=== PATIENT | male | born 1965 | race Caucasian/White ===

== ENCOUNTER → 2017-05-07 | Day surgery (SDC) | payer BC ==
[~2017-05-07] VITALS: Ht 167.6 cm; Wt 84.1 kg
[~2017-05-07] MED LIST: CALC-393 PO; CHOL100010 PO; CYAN100020 PO; FLAX10007 PO; GARLTAB3 PO; LACT10CA3 PO; LIDOCAINE HCL 2% 2 ML VIAL (20MG/ML) ONE; PROPOFOL IV EMULSION 10 MG/ML 20 ML VIAL IV ONE; SODIUM CHLORIDE 0.9% 500ML 500 ML IV ONE
[2017-05-07 13:42] VITALS: Ht 167.6 cm; Wt 84.1 kg
--- NOTE | 2017-05-07 14:14 | Endo History and Physical ---
History & Physical Date of Service: May 07, 2017. Chief Complaint: HX TUBULAR ADENOMA 3 YRS AGO Referring Physician: DR. JACOBO COVINGTON History of Present Illness 51 yo CM who presents for colonoscopy secondary to history of colon polyps. Past Surgical History Hx Cardiac Surgery: No Hx Internal Defibrillator: No Hx Pacemaker: No Hx Abdominal Surgery: No Hx of Implantable Prosthesis: No Hx Post-Op Nausea and Vomiting: No Hx Cancer Surgery: No Hx Thoracic Surgery: No Hx Orthopedic: No Hx Urinary Tract Surgery: No Family History None Social History Smoking Status: Never Smoker Hx Substance Use: No Hx Alcohol Use: Yes (OCCASIONALLY) Allergies Coded Allergies: No Known Allergies (Verified , 05/07/17) Current Medications Reported Home Medications Medications Dose Route/Sig Max Daily Dose Days Date Category Culturelle (Lactobacillus-Inulin) 1 Cap Cap 1 Cap PO QAM 04/23/17 Reported Flax Seed Oil (Flaxseed (Linseed)) 1,000 Mg Cap 1 Cap PO QAM 04/23/17 Reported Vitamin B12 (Cyanocobalamin) 1,000 Mcg Tab 1 Tab PO QAM 04/23/17 Reported Vitamin D (Cholecalciferol) 1,000 Unit Tab 1 Tab PO QAM 04/23/17 Reported Calcium (Calcium Carbonate) 600 Mg Tab 1 Tab PO QAM 04/23/17 Reported [Garlic] 1 Tab PO QAM 04/23/17 Reported Vital Signs Weight (Kilograms): 84.09 Height (Feet): 5 Height (Inches): 6 Date Time Temp Pulse Resp B/P (MAP) Pulse Ox O2 Delivery O2 Flow Rate FiO2 05/07/17 13:52 37.2 69 18 114/74 (87) 97 Room Air Physical Exam General Appearance: WD/WN, no apparent distress Respiratory/Chest: Auscultation: breath sounds normal Cardiovascular: Heart Auscultation: RRR Abdomen: Bowel Sounds: normal Inspection & Palpation: soft, non-distended, no tenderness, guarding & rebound Assessment and Plan Assessment: 51 yo CM who presents for colonoscopy secondary to history of colon polyps. Plan: Proceed with colonoscopy.
--- NOTE | 2017-05-07 14:38 | GI REPORT ---
Procedure Date: 05/07/2017 2:14 PM Procedure: Colonoscopy Indications: High risk colon cancer surveillance: Personal history of colonic polyps Medicines: Monitored Anesthesia Care Complications: No immediate complications. Estimated Blood Loss: Estimated blood loss: none. Procedure: Pre-Anesthesia Assessment: - Prior to the procedure, a History and Physical was performed, and patient medications and allergies were reviewed. The patient's tolerance of previous anesthesia was also reviewed. The risks and benefits of the procedure and the sedation options and risks were discussed with the patient. All questions were answered, and informed consent was obtained. Prior Anticoagulants: The patient has taken no previous anticoagulant or antiplatelet agents. ASA Grade Assessment: II - A patient with mild systemic disease. After reviewing the risks and benefits, the patient was deemed in satisfactory condition to undergo the procedure. After I obtained informed consent, the scope was passed under direct vision. Throughout the procedure, the patient's blood pressure, pulse, and oxygen saturations were monitored continuously. The scope was introduced through the anus and advanced to the terminal ileum. The colonoscopy was performed without difficulty. The patient tolerated the procedure well. The quality of the bowel preparation was good. The terminal ileum, ileocecal valve, appendiceal orifice, and rectum were photographed. Findings: Non-bleeding internal hemorrhoids were found during retroflexion. The hemorrhoids were small. Impression: - Non-bleeding internal hemorrhoids. - No specimens collected. Recommendation: - Resume previous diet. - Continue present medications. - Repeat colonoscopy in 5 years for surveillance. - Return to primary care physician as previously scheduled. Mal Clement DO 05/07/2017 2:37:54 PM This report has been signed electronically. Note Initiated On: 05/07/2017 2:14 PM I attest to the content of the Intraoperative Record and orders documented therein, exceptions below
--- NOTE | 2017-05-07 14:40 | Discharge Instructions ---
Endoscopy Patient Instructions Date / Procedure(s) Performed May 07, 2017. Colonoscopy Allergy Information Coded Allergies: No Known Allergies (Verified , 05/07/17) Discharge Date / Findings May 07, 2017. Internal hemorrhoids Medication Instructions Stopped Medication(s): NOTHING TAKEN THIS AM OK to resume all medications today as prescribed Reported Home Medications Medications Dose Route/Sig Max Daily Dose Days Date Category Culturelle (Lactobacillus-Inulin) 1 Cap Cap 1 Cap PO QAM 04/23/17 Reported Flax Seed Oil (Flaxseed (Linseed)) 1,000 Mg Cap 1 Cap PO QAM 04/23/17 Reported Vitamin B12 (Cyanocobalamin) 1,000 Mcg Tab 1 Tab PO QAM 04/23/17 Reported Vitamin D (Cholecalciferol) 1,000 Unit Tab 1 Tab PO QAM 04/23/17 Reported Calcium (Calcium Carbonate) 600 Mg Tab 1 Tab PO QAM 04/23/17 Reported [Garlic] 1 Tab PO QAM 04/23/17 Reported Provider Instructions Activity Restrictions - No exercising or heavy lifting for 24 hours. - Do not drink alcohol the day of the procedure. - Do not drive a car or operate machinery until the day after the procedure. - Do not make any important decisions or sign important papers in 24 hours after the procedure. Following Day: - Return to full activity which may include returning to work/school. Diet Start your diet with liquids and light foods (jello, soup, juice, toast). Then eat your usual diet if not nauseated. Treatment For Common After Affects For mild abdominal pain, bloating, or excessive gas: - Rest - Eat lightly - Lie on right side Follow-Up Information Follow-up with DR. JACOBO COVINGTON as scheduled Anesthesia Information What You Should Know You have had a procedure that required some medicine to reduce anxiety and discomfort. This treatment is called moderate sedation. After receiving the treatment, you may be sleepy, but you will be able to breathe on your own. The effects of the treatment may last for several hours. Follow these instructions along with Activity/Diet recommendations noted above: * Do NOT do anything where dizziness or clumsiness would be dangerous. * Rest quietly at home today, then you can be up and about tomorrow. * Have a responsible person stay with you the rest of today. * You may have had an I.V. today. If so, you may take the dressing off later today. Recommendations Call your doctor if: * Trouble breathing * Continuous vomiting for more than 24 hours * Temperature above 101 degrees * Severe abdominal pain or bloating * Pain not relieved by pain medicine ordered * There is increased drainage or redness from any incision * A large amount of rectal bleeding greater than 2-3 tablespoons. (If you had a polyp/s removed or have hemorrhoids, a small amount of blood - from the rectum is to be expected.) * You have any unanswered questions or concerns. IN THE EVENT OF A SERIOUS EMERGENCY, GO TO THE NEAREST EMERGENCY ROOM Your discharge instructions were prepared by provider Mal Clement. Patient Instructions Signature Page Manjeet Mcdonald Patient (or Guardian) Signature/Date: I have read and understand the instructions given to me by my caregivers. Caregiver/RN/Doctor Signature/Date: The above-named patient and/or guardian has received patient instructions on this date. + Original Patient Signature Page (only) stays with chart. Please make copy for patient.
[2017-05-07 15:11] VITALS: BP 107/67; PULSE 48; O2SAT 99
--- NOTE | 2017-05-07 15:15 | Anesthesiology Progress Note ---
Anesthesia Post Op Note Date & Time May 07, 2017 at 15:15 Vital Signs Pain Intensity: 0 Vital Signs Past 12 Hours Date Time Temp Pulse Resp B/P (MAP) Pulse Ox O2 Delivery O2 Flow Rate FiO2 05/07/17 15:11 48 20 107/67 (80) 99 Room Air 05/07/17 14:55 58 20 93/57 (69) 99 Room Air 05/07/17 14:38 69 20 99/45 (63) 97 Room Air 05/07/17 13:52 37.2 69 18 114/74 (87) 97 Room Air Notes Mental Status: alert / awake / arousable, participated in evaluation Pt Amnestic to Procedure: Yes Nausea / Vomiting: adequately controlled Pain: adequately controlled Airway Patency, RR, SpO2: stable & adequate BP & HR: stable & adequate Hydration State: stable & adequate Anesthetic Complications: no major complications apparent
== END | disposition home or self-care (01) ==
LOC: C.GI 13:22
PROVIDERS: ATTEND Internal Medicine
DX: Z12.11 Encounter for screening for malignant neoplasm of colon (principal); Z86.010 Personal history of colon polyps; K64.8 Other hemorrhoids

== ENCOUNTER → 2017-12-19 | Outpatient (CLI) | payer OTHER ==
[~2017-12-19] MED LIST changes: -LIDOCAINE HCL 2% 2 ML VIAL (20MG/ML) ONE; -PROPOFOL IV EMULSION 10 MG/ML 20 ML VIAL IV ONE; -SODIUM CHLORIDE 0.9% 500ML 500 ML IV ONE
[2017-12-19 16:55] LABS: BASO % 0.4 %; BASO ABS # 0.04 K/uL (0-0.2); EOS % 6.2 %; HEMATOCRIT 43.4 % (42-52); HEMOGLOBIN 14.5 g/dL (14.0-18.0); IG# 0.02 K/uL (0.00-0.02); LYMPH % 29.9 %; LYMPH ABS # 2.89 K/uL (1.2-3.4); MEAN CELL VOLUME 85.3 fL (80-100); MEAN CORPUSCULAR HEMOGLOBIN 28.5 pg (25-34); MEAN CORPUSCULAR HGB CONC 33.4 g/dl (32-36); MEAN PLATELET VOLUME 10.6 fL (7.4-10.4); MONO % 8.6 %; MONO ABS # 0.83 K/uL (0.11-0.59); NEUT % 54.7 %; NEUT ABS # 5.29 K/uL (1.4-6.5); PLATELET COUNT 316 K/uL (130-400); RED CELL DISTRIBUTION WIDTH CV 14.4 % (11.5-14.5); RED CELL DISTRIBUTION WIDTH SD 44.4 fL (36.4-46.3); WHITE BLOOD COUNT 9.67 K/uL (4.8-10.8)
[2017-12-19 17:06] LABS: ALBUMIN 4.1 gm/dl (3.4-5.0); ALT/SGPT 34 U/L (12-78); AST/SGOT 17 U/L (15-37); BLOOD UREA NITROGEN 14 mg/dl (7-18); CALCIUM 8.7 mg/dl (8.5-10.1); CARBON DIOXIDE 27 mmol/L (21-32); CREATININE 1.28 mg/dl (0.60-1.40); GLUCOSE 95 mg/dl (70-99); POTASSIUM 4.2 mmol/L (3.5-5.1); SODIUM 138 mmol/L (136-145)
[2017-12-19 17:14] LABS: ALKALINE PHOSPHATASE 66 U/L (45-117); TOTAL PROTEIN 8.1 gm/dl (6.4-8.2); TRANSFERRIN 390 mg/dl (200-360)
[2017-12-20 01:41] LABS: RAPID PLASMA REAGIN NONREACTIVE (NONREACT)
== END | disposition home or self-care (01) ==
LOC: C.LABBC 14:28
PROVIDERS: ATTEND Nurse Practitioner Adult Health
DX: R51 Headache (principal); D50.9 Iron deficiency anemia, unspecified

== ENCOUNTER → 2017-12-20 | Outpatient (CLI) | payer OTHER ==
[~2017-12-20] MED LIST changes: +GADAVIST IV PRN
--- NOTE | 2017-12-20 12:16 | DIAGNOSTIC IMAGING REPORT ---
BRAIN COMBO CLINICAL HISTORY: SEIZURE mental status change COMPARISON STUDY: No previous studies for comparison. TECHNIQUE: Utilizing a 1.5 Zenaida magnet and dedicated coil, multiplanar, multiecho imaging of the brain was performed pre and postcontrast administration. IV administration of 9 mL of Gadavist contrast was uneventful. FINDINGS: Diffusion images are negative for an acute ischemic process. Signal characteristics of the cerebellar as well as cerebral hemispheres are unremarkable. The ventricular system is midline. Postcontrast images are negative for an enhancing lesion IMPRESSION: Normal study. The above report was generated using voice recognition software. It may contain grammatical, syntax or spelling errors. Electronically signed by: Romario High M.D. 12/20/2017 12:15 PM Dictated Date/Time: 12/20/2017 12:10 PM
--- NOTE | 2017-12-20 12:21 | DIAGNOSTIC IMAGING REPORT ---
MRA NECK COMBO HISTORY: Mental status change SEIZURE TECHNIQUE: [id number]-[id number] and gadolinium-enhanced MRA of the neck was performed both before and after the intravenous administration of contrast. All measurements were calculated based on NASCET criteria. COMPARISON STUDY: None. FINDINGS: The aortic arch and proximal great vessels are widely patent. There is no significant stenosis, occlusion, or dissection identified within the bilateral common carotid, internal carotid, or vertebral arteries. Minimal plaque formation at the carotid bifurcations IMPRESSION: No significant stenosis, occlusion, or dissection identified within the carotid or vertebral arteries. Minimal plaque formation at the carotid bifurcations The above report was generated using voice recognition software. It may contain grammatical, syntax or spelling errors. Electronically signed by: Romario High M.D. 12/20/2017 12:19 PM Dictated Date/Time: 12/20/2017 12:17 PM
== END | disposition home or self-care (01) ==
LOC: C.MRIBC 09:42
PROVIDERS: ATTEND Nurse Practitioner Adult Health
DX: R56.9 Unspecified convulsions (principal); R47.01 Aphasia

== ENCOUNTER → 2017-12-21 | Outpatient (CLI) | payer OTHER ==
[~2017-12-21] MED LIST changes: -GADAVIST IV PRN
== END | disposition home or self-care (01) ==
LOC: C.LABBC 07:42
PROVIDERS: ATTEND Nurse Practitioner Adult Health
DX: E78.5 Hyperlipidemia, unspecified (principal)

== ENCOUNTER → 2017-12-26 | Outpatient (CLI) | payer OTHER ==
--- NOTE | 2017-12-26 16:17 | EEG Procedure Note ---
EEG Procedure Note Date of Service Dec 26, 2017. Start / End Times Start Time: 9:19 AM End Time: 9:39 AM Referring Physician ADAM Silverio History This is a 52-year-old male who is being evaluated for seizure-like activity described as having a moment of being paralyzed. EEG for further evaluation of possible seizure etiology. Home Medication List Scheduled Calcium Carbonate (Calcium), 1 TAB PO QAM Cholecalciferol (Vitamin D), 1 TAB PO QAM Cyanocobalamin (Vitamin B12), 1 TAB PO QAM Flaxseed (Linseed) (Flax Seed Oil), 1 CAP PO QAM Lactobacillus-Inulin (Culturelle), 1 CAP PO QAM [Garlic], 1 TAB PO QAM Description This is a 21 electrode EEG with a single channel dedicated to limited EKG. The electrodes were placed in accordance with the International 10-20 system. At the start of the recording the patient was in an awake state. Background was well organized and composed of symmetric mixed alpha and beta frequencies. There was a symmetric well-formed moderate amplitude 9-10 Hz posterior dominant rhythm that was reactive to eye opening and closure. Hyperventilation was not done. Intermittent photic stimulation at various frequencies produced no abnormalities. Sleep was indicated by vertex waves and symmetric sleep spindles. Interpretation This is a normal awake and drowsy routine EEG. There was no electrographic seizures or epileptiform discharges. Clinical Correlation A normal EEG does not rule out epilepsy if there is a strong clinical suspicion.
== END | disposition home or self-care (01) ==
LOC: C.NEUR 08:50
PROVIDERS: ATTEND Nurse Practitioner Adult Health
DX: R56.9 Unspecified convulsions (principal)

== ENCOUNTER 2019-10-21 17:53 | Inpatient (IN) ==
[2019-10-21 18:31] LABS: Basophils # (auto) 0.03 K/uL (0-0.2); Basophils % (auto) 0.3 %; Eosinophils # (auto) 0.72 K/uL (0-0.5); Eosinophils % (auto) 6.6 %; Hematocrit (blood only) 43.6 % (42-52); Hemoglobin 14.8 g/dL (14.0-18.0); Immature Granulocytes # (auto) 0.02 K/uL (0.00-0.02); Immature Granulocytes % (auto) 0.2 %; Lymphocytes # (auto) 2.92 K/uL (1.2-3.4); Lymphocytes % (auto) 26.6 %; Mean Corpuscular Hemoglobin 29.8 pg (25-34); Mean Corpuscular Hgb Conc 33.9 g/dL (32-36); Mean Corpuscular Volume 87.7 fL (80-100); Mean Platelet Volume 10.1 fL (7.4-10.4); Monocytes # (auto) 1.45 K/uL (0.11-0.59); Monocytes % (auto) 13.2 %; Neutrophils # (auto) 5.85 K/uL (1.4-6.5); Neutrophils % (auto) 53.1 %; Platelet Count 317 K/uL (130-400); RDW Coefficient of Variation 13.9 % (11.5-14.5); RDW Standard Deviation 44.4 fL (36.4-46.3); Red Blood Count 4.97 M/uL (4.7-6.1); White Blood Count 10.99 K/uL (4.8-10.8)
[2019-10-21] MEDS ORDERED: HEPARIN SOD (PORCINE) 1000 UNIT/ML 10 ML VIAL ONE (18:34)
[2019-10-21 18:42] LABS: Partial Thromboplastin Ratio 0.9; Partial Thromboplastin Time 23.8 Seconds (21.0-31.0); Prothrombin Time 10.4 Seconds (9.0-12.0)
[2019-10-21] MEDS: HEPARIN SODIUM/DEXTROSE 25,000 UNITS/500 ML BAG IV SCH (18:42)
--- NOTE | 2019-10-21 18:42 | XRay Report ---
SINGLE VIEW CHEST CLINICAL HISTORY: Atypical chest pain. FINDINGS: An AP, portable, upright chest radiograph is compared to study dated 06/18/2018 and correlat ed with chest CT dated 10/21/2019. The examination is degraded by portable technique and apical lordot ic positioning. The cardiomediastinal silhouette is unremarkable. There is chronic elevation of the r ight hemidiaphragm. No airspace consolidation or pleural effusion is identified. No pneumothorax is s een. The bony thorax is grossly intact. IMPRESSION: The lungs are clear. ACT 112: Negative or not required by law. Electronically signed by: Brian Mathew M.D. 10/21/2019 6:41 PM
[2019-10-21 18:58] LABS: Albumin Level 3.6 gm/dl (3.4-5.0); BUN Creatinine Ratio 10.2 (10-20); Calcium 8.4 mg/dl (8.5-10.1); Creatinine Clr Calc Pharmacy 68.7 ml/min; Est GFR (African American) 73.2; Est GFR (Non-African American) 63.2
[2019-10-21 19:03] LABS: Albumin Globulin Ratio 0.9 (0.9-2); Bilirubin,Total 0.5 mg/dl (0.2-1); Globulin 3.8 gm/dl (2.5-4.0); Total Protein 7.4 gm/dl (6.4-8.2); Troponin I 0.018 ng/ml (0-0.045)
--- NOTE | 2019-10-21 20:31 | Ultrasound Report ---
ULTRASOUND BILATERAL LOWER EXTREMITY VENOUS CLINICAL HISTORY: Syncope. Pulmonary embolus. COMPARISON STUDY: Right lower extremity venous ultrasound dated 02/23/2010. TECHNIQUE: Real-time, grayscale, and color Doppler sonography of the deep veins of the right and left lower extremity was performed from the inguinal crease to the calf. Compression and augmentation wer e utilized. FINDINGS: Right lower extremity: Nonocclusive deep venous thrombosis is identified in the calf within a posteri or tibial vein. The remaining visualized calf vessels are clear. No above knee deep venous thrombosis is seen in the right lower extremity. The common femoral, superficial femoral, and popliteal veins a re patent and normally compressible. The greater saphenous vein and the profunda femoris vein at the junction with the common femoral vein are clear. Left lower extremity: Nonocclusive deep venous thrombosis is identified in the calf within the perone al veins. The remaining calf vessels appear clear. There is no sonographic evidence of above knee iván p venous thrombosis in the left lower extremity. The common femoral, superficial femoral, and poplite al veins are patent and normally compressible. The greater saphenous vein and the profunda femoris ve in at the junction with the common femoral vein are clear. Superficial venous thrombus is present in the popliteal fossa approximately 6 cm from the popliteal vein. IMPRESSION: 1. There is nonocclusive deep venous thrombosis identified in the calf bilaterally. 2. Superficial venous thrombus is identified in the left lower extremity. ACT 112: Negative or not required by law. Electronically signed by: Brian Mathew M.D. 10/21/2019 8:29 PM
--- NOTE | 2019-10-21 21:38 | History & Physical Report ---
Date of Service October 21, 2019 Assessment & Plan (1) Pulmonary emboli: 54 yo M with PMH HTN presents from PCP office to get D Dimer testing that was found to be elevated. Follow up Chest CTA revealed pulmonary emboli and venous dopplers revealed b/l DVT's. PE/DVT -D- Dimer was 950 -Chest CTA: Tiny distal segmental/subsegmental pulmonary emboli within branches of the right and left lower lobe pulmonary arteries. -Venous Dopplers: Nonocclusive deep venous thrombosis identified in the calf bilaterally. Superficial venous thrombus is identified in the left lower extremity. -Cont IV Heparin 25,000 units. Can discuss switching to PO regimen with day team -ECHO pending -deferring hyper-coaguable workup at present, which can be done by Heme/Onc as an outpt at 3 or 6 month f/u HTN -cont propranolol 60 mg FEN/GI: HH Diet DVT Prophylaxis: IV Heparin Full Code Dispo: PCU Tele History of Present Illness Chief Complaint: Elevated D-Dimer Primary Care Provider: Bruno Pritchard MD 54 yo M with PMH HTN presents from PCP's office. Pt was seen in ER Oct 20, 2019 for syncopal episode while attempting to urinate. He suffered a concussion and closed head injury. CT scan of the head and neck were negative for acute pathology. ECG: Normal without ectopy or dysrhythmia. The labs revealed an unremarkable CBC and chemistry panel. The patient was instructed to follow-up closely with his primary office, which he did so today. At this visit, pt mentioned some right calf tenderness. Given recent travel to [facility] (traveled for 2 weeks, returned 9 days ago- Oct 11), it was decided to check a D-dimer. Pt wore compression stockings with travel. At PCP visit, pt denied any dyspnea, chest pain, edema, he was oxygenating normally, Heart rate 60. In [place], pt had an episode of sudden diaphoresis with some mild exertion, but did not need to rest. Notes that he has had similar episodes in the past. Otherwise denies CP, SOB, syncope or near syncope, edema, palpitations. Pt with no other acute concerns or complaints. D- Dimer was 950. Chest CTA: Tiny distal segmental/subsegmental pulmonary emboli within branches of the right and left lower lobe pulmonary arteries. Venous Dopplers: Nonocclusive deep venous thrombosis identified in the calf bilaterally. Superficial venous thrombus is identified in the left lower extremity. ER Course: IV Heparin Family Hx: CAD, Cardiac disorder, DM, HTN in Father. No known family hx of cancers otherwise Social: Denies any Tobacco, illicit drug use. Social Alcohol use Surgical Hx: None Allergies Allergy/AdvReac Type Severity Reaction Status Date / Time No Known Allergies Allergy Verified 10/21/19 13:33 Home Medications Home Medications Medication Instructions Recorded Confirmed Type calcium carb-mag oxide-vit D3 1 tab PO HS 10/20/19 10/21/19 History lysine [L-Lysine] 500 mg PO HS 10/21/19 10/21/19 History propranolol 60 mg PO HS 10/21/19 10/21/19 History Past Med/Surg History Medical History Other and unspecified hyperlipidemia (Acute 02/17/13) Family History Father Coronary heart disease Cardiac disorder Diabetes Hypertension Social History Preferred Language: Cambodian Communication Ability: Effective Silk Spreader Required: No Beliefs That Will Affect Care: None marital status: Current Living Situation: Spouse current occupational status: employed 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 Other Information That Helps Us Care for You: No Feels Safe at Home: Yes Safety Concerns: Feels Safe At This Time Smoking Status: Unknown if ever smoked Hx Alcohol Use: No Hx Substance Use: No Review of Systems Review of Systems: All systems reviewed & are unremarkable except as noted in HPI & below Physical Exam Constitutional: WD/WN, vitals as above Eyes: PERRL, conjunctivae normal, anicteric sclerae ENMT: external ear and nose normal, oropharynx normal Respiratory: normal respiratory effort, lungs clear to auscultation Cardiovascular: RRR, no murmur, no edema Gastrointestinal (Abdomen): normal bowel sounds, soft, nontender, no hepatosplenomegaly Musculoskeletal: mild R calf tenderness Leslie's contraindicated Skin: no rashes, warm and dry Psychiatric: A+Ox3, euthymic affect Results & Data Vital Signs (Past 12 Hours) Vital Signs Temp Pulse Resp BP Pulse Ox 10/21/19 20:31 53 L 20 96 10/21/19 20:30 55 L 20 120/76 98 10/21/19 20:29 55 L 22 96 10/21/19 19:30 52 L 21 10/21/19 19:00 52 L 17 133/80 10/21/19 18:30 58 L 18 134/82 95 10/21/19 18:21 55 L 20 97 10/21/19 18:15 54 L 21 98 10/21/19 18:09 57 L 21 140/84 98 10/21/19 18:01 36.7 C 60 16 152/95 H 98 Laboratory Results Laboratory Results - last 24 hr 10/21/19 10/21/19 10/21/19 18:18 18:18 18:18 WBC 10.99 H RBC 4.97 Hgb 14.8 Hct 43.6 MCV 87.7 MCH 29.8 MCHC 33.9 RDW Std Deviation 44.4 RDW Coeff of Teodora 13.9 Plt Count 317 MPV 10.1 Immature Gran % (Auto) 0.2 Neut % (Auto) 53.1 Lymph % (Auto) 26.6 Door % (Auto) 13.2 Eos % (Auto) 6.6 Baso % (Auto) 0.3 Immature Gran # (Auto) 0.02 Neut # (Auto) 5.85 Lymph # (Auto) 2.92 Door # (Auto) 1.45 H Eos # (Auto) 0.72 H Baso # (Auto) 0.03 PT 10.4 INR 1.0 APTT 23.8 PTT Ratio 0.9 Sodium 137 Potassium 4.0 Chloride 106 Carbon Dioxide 28 Anion Gap 3.0 BUN 13 Creatinine 1.27 Est Cr Clr Drug Dosing 68.7 Est GFR ( Amer) 73.2 Est GFR (Non-Af Amer) 63.2 BUN/Creatinine Ratio 10.2 Glucose 91 Calcium 8.4 L Total Bilirubin 0.5 AST 15 ALT 34 Alkaline Phosphatase 69 Troponin I 0.018 Total Protein 7.4 Albumin 3.6 Globulin 3.8 Albumin/Globulin Ratio 0.9 Lipase 239 Medications Administered Current Inpatient Medications Heparin Sodium/Dextrose (Heparin Sodium/Dextrose) 25,000 units in 500 mls @ 0.02 mls/hr IV .Q24H [facility]; Protocol Stop: 11/20/19 18:29 Last Admin: 10/21/19 18:42 Dose: 1,350 units/hr, 27 mls/hr Documented by: Code Status & VTE Plan Code Status FULL Supervising Physician Co-Signing Physician Notes Patient was seen and examined by me personally. I reviewed the chart, the orders and discussed the case in detail with Dr. Jose Massey DO . I read this H&P and agree with its contents to entirety. Resident Activity Tracking Resident Involvement: Resident Care Provided Care Provided: Adult Hospital Medicine
--- NOTE | 2019-10-21 23:26 | Emergency Department Note ---
Entered by Sammy Bower acting as a scribe for Nayan Layne DO History of Present Illness General Chief complaint: Abnormal Labs/Diagnostic Testing Stated complaint: OUTPATIENT TESTING - PE Source: patient History of Present Illness Provider complaint: Abnormal testing Onset (ago): hour(s) (Today) Location: chest Pain Consistency: + other (Episodic) Maximum Pain Intensity: 0 Current Pain Intensity: 0 Associated symptoms: + syncope; no chest pain and no shortness of breath The patient is a 54 year old male w/ PMHx of migraines, HTN, concussion, and syncope who presents to the ED after having abnormal blood work and imaging today. The patient states his D-dimer was elevated so he had a CT scan of the chest done that showed multiple tiny PEs. The patient had the testing done due to a syncopal episode he had yesterday while he was walking to the bathroom. The patient denies any chest pain or shortness of breath at the time of the incident. He also relates that he has not had any shortness of breath with exertion as of late. The patient mentioned that he recently had returned from [facility] 10 days ago. Patient denies swelling of calves, history of immobilization or recent surgery, prior history of DVT, hemoptysis, history of malignancy, or history of smoking. The patient also denies any hematochezia, melena, or hematuria. Home Medications Home Medications Medication Instructions Recorded Confirmed Type calcium carb-mag oxide-vit D3 1 tab PO HS 10/20/19 10/21/19 History lysine [L-Lysine] 500 mg PO HS 10/21/19 10/21/19 History propranolol 60 mg PO HS 10/21/19 10/21/19 History Allergies Allergy/AdvReac Type Severity Reaction Status Date / Time No Known Allergies Allergy Verified 10/21/19 13:33 Past Med/Surg History Medical History Other and unspecified hyperlipidemia (Acute 02/17/13) Family History Father Coronary heart disease Cardiac disorder Diabetes Hypertension Social History Preferred Language: Nepali marital status: current occupational status: employed 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 and A total of 10 systems reviewed and were otherwise negative Physical Exam Vital Signs Vital Signs - 24 hr 10/21/19 18:01 10/21/19 18:09 10/21/19 18:15 Temperature 36.7 C Temperature Source Oral Pulse Rate 60 57 L 54 L Pulse Rate from SpO2 Sensor 59 L 53 L Pulse Rhythm Respiratory Rate 16 21 21 Respiratory Effort / Characteristics Non-Labored Respiratory Depth Normal Blood Pressure 152/95 H 140/84 Blood Pressure Mean 114 101 Pulse Oximetry 98 98 98 Oxygen Delivery Method Room Air Room Air Sepsis Recent Fever Within 48 Hours No Sepsis New/Unexplained Change in Mental Status No Sepsis Action Taken by Nursing No Action Required 10/21/19 18:21 10/21/19 18:30 10/21/19 19:00 Temperature Temperature Source Pulse Rate 55 L 58 L 52 L Pulse Rate from SpO2 Sensor 56 L Pulse Rhythm Regular Respiratory Rate 20 18 17 Respiratory Effort / Characteristics Respiratory Depth Blood Pressure 134/82 133/80 Blood Pressure Mean 99 97 Pulse Oximetry 97 95 Oxygen Delivery Method Room Air Room Air Room Air Sepsis Recent Fever Within 48 Hours Sepsis New/Unexplained Change in Mental Status Sepsis Action Taken by Nursing 10/21/19 19:30 10/21/19 20:29 10/21/19 20:30 Temperature Temperature Source Pulse Rate 52 L 55 L 55 L Pulse Rate from SpO2 Sensor 54 L 55 L Pulse Rhythm Respiratory Rate 21 22 20 Respiratory Effort / Characteristics Respiratory Depth Blood Pressure 120/76 Blood Pressure Mean 84 Pulse Oximetry 96 98 Oxygen Delivery Method Sepsis Recent Fever Within 48 Hours Sepsis New/Unexplained Change in Mental Status Sepsis Action Taken by Nursing 10/21/19 20:31 10/21/19 21:00 10/21/19 21:30 Temperature Temperature Source Pulse Rate 53 L 51 L 47 L Pulse Rate from SpO2 Sensor 57 L 50 L 47 L Pulse Rhythm Respiratory Rate 20 17 22 Respiratory Effort / Characteristics Respiratory Depth Blood Pressure Blood Pressure Mean Pulse Oximetry 96 96 97 Oxygen Delivery Method Sepsis Recent Fever Within 48 Hours Sepsis New/Unexplained Change in Mental Status Sepsis Action Taken by Nursing 10/21/19 22:00 10/21/19 22:07 10/21/19 22:30 Temperature Temperature Source Pulse Rate 48 L 55 L 56 L Pulse Rate from SpO2 Sensor 49 L Pulse Rhythm Respiratory Rate 21 22 23 Respiratory Effort / Characteristics Respiratory Depth Blood Pressure 122/90 129/83 Blood Pressure Mean 103 93 Pulse Oximetry 95 Oxygen Delivery Method Sepsis Recent Fever Within 48 Hours Sepsis New/Unexplained Change in Mental Status Sepsis Action Taken by Nursing 10/21/19 22:31 10/21/19 23:00 10/21/19 23:01 Temperature Temperature Source Pulse Rate 61 58 L 58 L Pulse Rate from SpO2 Sensor Pulse Rhythm Respiratory Rate 24 19 19 Respiratory Effort / Characteristics Respiratory Depth Blood Pressure 115/77 Blood Pressure Mean 85 Pulse Oximetry Oxygen Delivery Method Sepsis Recent Fever Within 48 Hours Sepsis New/Unexplained Change in Mental Status Sepsis Action Taken by Nursing GENERAL: Sitting up in bed, alert, well appearing, well nourished, no distress, non-toxic EYE EXAM: normal conjunctiva. OROPHARYNX: no exudate, no erythema, lips, buccal mucosa, and tongue normal and mucous membranes are moist NECK: supple, no nuchal rigidity, no adenopathy, non-tender LUNGS: Clear to auscultation. Normal chest wall mechanics HEART: Bradycardic rate, no murmurs, S1 normal and S2 normal ABDOMEN: abdomen soft, non-tender, normo-active bowel, sounds, no masses, no rebound or guarding. BACK: Back is symmetrical on inspection and there is no deformity, no midline tenderness, no CVA tenderness. SKIN: no rashes and no bruising UPPER EXTREMITIES: upper extremities are grossly normal. LOWER EXTREMITIES: No pitting edema. Calves equal bilaterally. NEURO EXAM: Normal sensorium, cranial nerves II-XII grossly intact, normal speech, no gross weakness of arms, no gross weakness of legs. Course Course ED COURSE: Vital signs were reviewed and showed bradycardia. The patients medical record was reviewed The above diagnostic studies were performed and reviewed. ED treatments and interventions as stated above. 1807: The patient was evaluated in room A04B. A complete history and physical examination was performed. 1904: Upon reevaluation, the patient is resting in bed. I discussed my findings with the patient and he understands and agrees with the treatment plan. 1926: [facility] He agreed to accept the patient for further evaluation. Based on the patients age, coexisting illnesses, exam and lab findings the decision to treat as an inpatient was made. The patient remained stable while under my care. The patient will be evaluated for further management. Consultations Consultation #1: I spoke to Dr. Jose Francisco Ruiz [facility] Hospitalist about the patient's case. He agreed to accept the patient for further evaluation. Time: 19:27 Administered Medications Heparin Sodium/Dextrose (Heparin Sodium/Dextrose) 25,000 units in 500 mls @ 0. 02 mls/hr IV .Q24H CARMELITA; Protocol Stop: 11/20/19 18:29 Last Admin: 10/21/19 18:42 Dose: 1,350 units/hr, 27 mls/hr Documented by: [id number] Cosigned by: [id number] Discontinued Medications Heparin Sodium (Porcine) (Heparin Iv Bolus) Confirm Administered Dose 10,000 units .ROUTE .[facility] Stop: 10/21/19 18:35 Last Admin: 10/21/19 18:42 Dose: 5,000 units Documented by: [id number] Cosigned by: [id number] Heparin Sodium/Dextrose () 1 ea IV NOW STA; Protocol Stop: 10/21/19 18:23 Last Admin: 10/21/19 18:44 Dose: Not Given Documented by: [id number] Critical Care Time Critical Care Time: Yes Total Critical Care Time: 31 I have personally spent greater than 31 minutes of critical care time in the direct management of this patient. This includes bedside care, interpretation of diagnostic studies, and testing, discussion with consultants, patient, and family members, and other required patient management activities. This 31 minutes is in excess of all separately billable procedures. Medical Decision Making Differential Diagnosis Differential diagnosis includes etiologies such as vasovagal event, infection, hypoglycemia, electrolyte abnormalities, cardiac sources, intracerebral event, toxicologic, neurologic, as well as others were entertained. Medical Records Attestation: I reviewed the patient's medical records. Home Medications Current Medication List: was personally reviewed by mi Laboratory Data Attestation: I reviewed the patient's lab results. Result diagrams: 10/21/19 18:18 10/21/19 18:18 Lab Results 10/21/19 10/21/19 10/21/19 Range/Units 18:18 18:18 18:18 WBC 10.99 H (4.8-10.8) K/uL RBC 4.97 (4.7-6.1) M/uL Hgb 14.8 (14.0-18.0) g/dL Hct 43.6 (42-52) % MCV 87.7 (80-100) fL MCH 29.8 (25-34) pg MCHC 33.9 (32-36) g/dL RDW Std Deviation 44.4 (36.4-46.3) fL RDW Coeff of Teodora 13.9 (11.5-14.5) % Plt Count 317 (130-400) K/uL MPV 10.1 (7.4-10.4) fL Immature Gran % (Auto) 0.2 % Neut % (Auto) 53.1 % Lymph % (Auto) 26.6 % [place] % (Auto) 13.2 % Eos % (Auto) 6.6 % Baso % (Auto) 0.3 % Immature Gran # (Auto) 0.02 (0.00-0.02) K/uL Neut # (Auto) 5.85 (1.4-6.5) K/uL Lymph # (Auto) 2.92 (1.2-3.4) K/uL [place] # (Auto) 1.45 H (0.11-0.59) K/uL Eos # (Auto) 0.72 H (0-0.5) K/uL Baso # (Auto) 0.03 (0-0.2) K/uL PT 10.4 (9.0-12.0) Seconds INR 1.0 (0.9-1.1) APTT 23.8 (21.0-31.0) Seconds PTT Ratio 0.9 Sodium 137 (136-145) mmol/L Potassium 4.0 (3.5-5.1) mmol/L Chloride 106 (98-107) mmol/L Carbon Dioxide 28 (21-32) mmol/L Anion Gap 3.0 (3-11) BUN 13 (7-18) mg/dl Creatinine 1.27 (0.6-1.4) mg/dl Est Cr Clr Drug Dosing 68.7 ml/min Est GFR ( Amer) 73.2 Est GFR (Non-Af Amer) 63.2 BUN/Creatinine Ratio 10.2 (10-20) Glucose 91 (70-99) mg/dl Calcium 8.4 L (8.5-10.1) mg/dl Total Bilirubin 0.5 (0.2-1) mg/dl AST 15 (15-37) U/L ALT 34 (12-78) U/L Alkaline Phosphatase 69 (45-117) U/L Troponin I 0.018 (0-0.045) ng/ml Total Protein 7.4 (6.4-8.2) gm/dl Albumin 3.6 (3.4-5.0) gm/dl Globulin 3.8 (2.5-4.0) gm/dl Albumin/Globulin Ratio 0.9 (0.9-2) Lipase 239 (73-393) U/L Imaging Data Radiologist's Impression: Radiology results as stated below per my review and the radiologist's interpretation: SINGLE VIEW CHEST CLINICAL HISTORY: Atypical chest pain. FINDINGS: An AP, portable, upright chest radiograph is compared to study dated 06/18/2018 and correlated with chest CT dated 10/21/2019. The examination is degraded by portable technique and apical lordotic positioning. The cardiomediastinal silhouette is unremarkable. There is chronic elevation of the right hemidiaphragm. No airspace consolidation or pleural effusion is identified. No pneumothorax is seen. The bony thorax is grossly intact. IMPRESSION: The lungs are clear. ACT 112: Negative or not required by law. Electronically signed by: Brian Mathew M.D. 10/21/2019 6:41 PM ULTRASOUND BILATERAL LOWER EXTREMITY VENOUS CLINICAL HISTORY: Syncope. Pulmonary embolus. COMPARISON STUDY: Right lower extremity venous ultrasound dated 02/23/2010. TECHNIQUE: Real-time, grayscale, and color Doppler sonography of the deep veins of the right and left lower extremity was performed from the inguinal crease to the calf. Compression and augmentation were utilized. FINDINGS: Right lower extremity: Nonocclusive deep venous thrombosis is identified in the calf within a posterior tibial vein. The remaining visualized calf vessels are clear. No above knee deep venous thrombosis is seen in the right lower extremity. The common femoral, superficial femoral, and popliteal veins are doyle nt and normally compressible. The greater saphenous vein and the profunda femoris vein at the junction with the common femoral vein are clear. Left lower extremity: Nonocclusive deep venous thrombosis is identified in the calf within the peroneal veins. The remaining calf vessels appear clear. There is no sonographic evidence of above knee deep venous thrombosis in the left lower extremity. The common femoral, superficial femoral, and popliteal veins are patent and normally compressible. The greater saphenous vein and the profunda femoris vein at the junction with the common femoral vein are clear. Superficial venous thrombus is present in the popliteal fossa approximately 6 cm from the popliteal vein. IMPRESSION: 1. There is nonocclusive deep venous thrombosis identified in the calf bi laterally. 2. Superficial venous thrombus is identified in the left lower extremity. ACT 112: Negative or not required by law. Electronically signed by: Brian Mathew M.D. 10/21/2019 8:29 PM ECG Data Attestation: I personally reviewed and interpreted this ECG as follows: Indication: + other (Abnormal labs) Rate (beats per minute): 48 Rhythm: + sinus bradycardia ECG Intervals/blocks: + Normal QT-c ECG Medicine Bow: + Normal ECG Findings: no PVCs Blood Pressure Blood Pressure Findings: Normal blood pressure MDM Narrative Patient is a 54-year-old male referred in by his PCP for bilateral PEs. He was seen yesterday for a syncopal episode following which she had blood work performed an EKG and was discharged to follow-up with his PCP as an outpatient. He followed up today. Patient had a transcontinental flight at the end of September and came back October 10 with his . He followed up with his PCP who performed a d-dimer secondary to the flight and the syncopal episode. D-dimer was positive and they performed a CT PE which showed bilateral subsegmental PEs and was constantly referred into the ER. IV was established blood work was obtained and showed a mild leukocytosis of 10.9 thousand. No significant anemia. INR and PTT were unremarkable. BMP along with LFTs bilirubin were unremarkable. Troponin was detectable but not positive. Lipase was unremarkable. EKG showed no signs of acute ischemia. Patient did hit his head yesterday and CT head was reviewed and was negative for any bleed. He denies coughing up blood, vomiting blood, urinating blood, dark tarry stools or hematemesis. No previous brain bleeds. No recent surgeries. He was updated at bedside. With his recent syncopal episode, detectable troponin but not positive and bilateral subsegmental PEs I do believe the inciting factor was the recent transcontinental flight and favored observation. Discussed with the hospitalist. Patient and family were updated bedside. Impression & Plan Bilateral pulmonary embolism, Syncope, Leukocytosis Discharge Plan Visit Data Chief Complaint: Abnormal Labs/Diagnostic Testing Stated Complaint: OUTPATIENT TESTING - PE ED Provider: Nayan Layne Discharge Problem: Bilateral pulmonary embolism, Syncope, Leukocytosis Patient Disposition: Being Evaluated by Hospitalist Forms Stand Alone Forms: My [facility] [employer] Prescriptions Prescriptions: No Action calcium carb-mag oxide-vit D3 400-167-133 mg-mg-unit Tablet 1 tab PO HS RF: 0 lysine [L-Lysine] 500 mg Tablet 500 mg PO HS RF: 0 propranolol 60 mg capsule,extended release 24 hr 60 mg PO HS RF: 0 Referrals Referrals: Bruno Pritchard MD [Primary Care Provider] - Discharge Problem: Syncope Qualifiers: Syncope type: unspecified Qualified Code(s): R55 - Syncope and collapse Leukocytosis Qualifiers: Leukocytosis type: unspecified Qualified Code(s): D72.829 - Elevated white blood cell count, unspecified The scribe's documentation has been prepared under my direction and personally reviewed by me in its entirety. I confirm that the note above accurately reflects all work, treatment, procedures, and medical decision making performed by me.
[2019-10-22 00:28] LABS: Partial Thromboplastin Ratio 2.6
[2019-10-22 00:45] LABS: Partial Thromboplastin Time 69.8 Seconds (21.0-31.0)
[2019-10-22] MEDS ORDERED: NITROGLYCERIN SL 0.4 MG/TAB TAB SL PRN (00:47)
[2019-10-22] MEDS ORDERED: ONDANSETRON INJ 2 MG/ML 2 ML VIAL IV PRN (00:47)
[2019-10-22] MEDS ORDERED: ALUMINUM/MAGNESIUM SUSP 30 ML UDC PO PRN (00:47)
[2019-10-22] MEDS ORDERED: ACETAMINOPHEN 325 MG TAB PO PRN (00:47)
--- NOTE | 2019-10-22 04:15 | Billing Data ---
Date of Service October 21, 2019 Coding Level of Care Code 33507 Initial Inpt Care Lvl 3
[2019-10-22 07:48] LABS: Hematocrit (blood only) 41.5 % (42-52); Mean Corpuscular Hemoglobin 29.6 pg (25-34); Mean Corpuscular Hgb Conc 33.7 g/dL (32-36); Mean Corpuscular Volume 87.7 fL (80-100); Mean Platelet Volume 10.3 fL (7.4-10.4); Platelet Count 296 K/uL (130-400); RDW Coefficient of Variation 13.9 % (11.5-14.5); Red Blood Count 4.73 M/uL (4.7-6.1); White Blood Count 8.87 K/uL (4.8-10.8)
[2019-10-22 08:08] LABS: Partial Thromboplastin Ratio 2.6
[2019-10-22 08:11] LABS: Partial Thromboplastin Time 69.6 Seconds (21.0-31.0)
--- NOTE | 2019-10-22 11:00 | Electrocardiogram Report ---
Test Reason : Blood Pressure : / mmHG Vent. Rate : 048 BPM Atrial Rate : 048 BPM P-R Int : 170 ms QRS Dur : 078 ms QT Int : 426 ms P-R-T Axes : 029 009 042 degrees QTc Int : 380 ms Sinus bradycardia Low voltage QRS Borderline ECG When compared with ECG of 20-OCT-2019 15:00, HR has decreased by 19 bpm Otherwise no significant change Confirmed by Messi Han ([id number]) on 10/22/2019 10:59:50 AM Referred By: Keren Robison Confirmed By:Messi Han
--- NOTE | 2019-10-22 14:17 | Discharge Summary ---
Date of Service October 22, 2019 Admission HPI Per Admitting Provider 54 yo M with PMH HTN presents from PCP's office. Pt was seen in ER Oct 20, 2019 for syncopal episode while attempting to urinate. He suffered a concussion and closed head injury. CT scan of the head and neck were negative for acute pathology. ECG: Normal without ectopy or dysrhythmia. The labs revealed an unremarkable CBC and chemistry panel. The patient was instructed to follow-up closely with his primary office, which he did so today. At this visit, pt mentioned some right calf tenderness. Given recent travel to [facility] (traveled for 2 weeks, returned 9 days ago- Oct 11), it was decided to check a D-dimer. Pt wore compression stockings with travel. At PCP visit, pt denied any dyspnea, chest pain, edema, he was oxygenating normally, Heart rate 60. In [place], pt had an episode of sudden diaphoresis with some mild exertion, but did not need to rest. Notes that he has had similar episodes in the past. Otherwise denies CP, SOB, syncope or near syncope, edema, palpitations. Pt with no other acute concerns or complaints. D- Dimer was 950. Chest CTA: Tiny distal segmental/subsegmental pulmonary emboli within branches of the right and left lower lobe pulmonary arteries. Venous Dopplers: Nonocclusive deep venous thrombosis identified in the calf bilaterally. Superficial venous thrombus is identified in the left lower extremity. ER Course: IV Heparin Family Hx: CAD, Cardiac disorder, DM, HTN in Father. No known family hx of cancers otherwise Social: Denies any Tobacco, illicit drug use. Social Alcohol use Surgical Hx: None Admission Exam Per Admitting Provider Constitutional: WD/WN, vitals as above Eyes: PERRL, conjunctivae normal, anicteric sclerae ENMT: external ear and nose normal, oropharynx normal Respiratory: normal respiratory effort, lungs clear to auscultation Cardiovascular: RRR, no murmur, no edema Gastrointestinal (Abdomen): normal bowel sounds, soft, nontender, no hepatosplenomegaly Musculoskeletal: mild R calf tenderness Leslie's contraindicated Skin: no rashes, warm and dry Psychiatric: A+Ox3, euthymic affect Principal Diagnosis Venous thromboembolic disease Discharge Exam Constitutional: WD/WN, vitals as above Eyes: PERRL, conjunctivae normal, anicteric sclerae ENMT: external ear and nose normal, oropharynx normal Respiratory: normal respiratory effort, lungs clear to auscultation Cardiovascular: RRR, no murmur, no edema Gastrointestinal (Abdomen): normal bowel sounds, soft, nontender, no hepatosplenomegaly Skin: no rashes, warm and dry Psychiatric: A+Ox3, euthymic affect Discharge Data Allergies Allergy/AdvReac Type Severity Reaction Status Date / Time No Known Allergies Allergy Verified 10/21/19 13:33 Consultations 10/21/19 19:10 ED Decision to Admit Stat Ordered Studies 10/21/19 19:11 US venous doppler [facility] Stat Hospital Course (1) Pulmonary emboli: 54 yo M with PMH HTN presents from PCP office to get D Dimer testing that was found to be elevated. Follow up Chest CTA revealed pulmonary emboli and venous dopplers revealed b/l DVT's. Acute PE/DVT -D- Dimer was 950 -Chest CTA: Tiny distal segmental/subsegmental pulmonary emboli within branches of the right and left lower lobe pulmonary arteries. -Venous Dopplers: Nonocclusive deep venous thrombosis identified in the calf bilaterally. Superficial venous thrombus is identified in the left lower extremity. -Started on IV Heparin in Emergency department -ECHO showing some evidence of septal bowing and elevated right ventricular pressure 40-50 mmHg Provoked DVT as patient was on two long flights in the last several weeks so no indication for hypercoagulability testing at this time Patient was transitioned to Xarelto, will continue 15 mg BID for 21 days and then 20 mg once daily for at least 3 months. Patient remained hemodynamically stable throughout, no tachycardia tachypnea or hypotension at any point during his hospitalization. Total Time Total Time Spent Total Time Spent (In Minutes): 45 Total Time Includes: Examination of the Patient, Discharge Planning and Medication Reconciliation Discharge Plan Discharge Items Patient Disposition: Home - Self-Care Reason For Visit: PE Discharge Diagnosis: Pulmonary Emboli, DVT Activity: Per Instructions section Non-emergency contact: Primary Care Provider Call non-emergency contact if: you have any medication questions and your symptoms worsen Follow-up/Referrals: Bruno Pritchard MD [Primary Care Provider] - 10/27/19 2:30 pm (Please, follow up at Dr. Bruno Pritchard's office with his associate, Josefina Mustafa PA-C, on SundayOctober 27 at 2:30 pm. *If you need to change this appointment, call the office at [phone].) Diet: Regular Addtl Attending Provider Instructions: Mr. Mcdonald, It was a pleasure meeting you and treating you for your Deep vein thrombosis and pulmonary Emboli. We believe the clot in your legs formed due to sitting still on the plane ride to and from [place]. These clots then broke off and made their way to your lungs where they caused the symptoms you experienced. As we have discussed extensively, the treatment for this would be anticoagulation to prevent spread of clot and allow them to be resorbed. The risk of being on this blood thinner is that it can increase your bleeding risk. As we discussed we believe the risk of this is much smaller than the risk of untreated venous thromboembolic disease. You will be starting on the medication rivaroxaban, or xarelto. This medication is to be taken as one 15 mg tablet two times daily for 21 days followed by 20 mg once daily for at least three months total. I will be sending you with m edication for the first 21 days, it is important that you follow up closely with your primary care provider to start your 20 mg daily dose and to decide how long to continue therapy. Should you experience any new or worsening shortness of breath, chest, pain, or any other concerning symptoms do not hesitate to return to medical care. Pending Studies at Discharge: No Stand-Alone Forms: My [facility], Smoking Cessation Medications and DC Order Prescriptions: New Xarelto 15 mg Tablet 15 mg PO BID 21 Days Qty: 42 RF: 0 Continued calcium carb-mag oxide-vit D3 400-167-133 mg-mg-unit Tablet 1 tab PO HS RF: 0 lysine [L-Lysine] 500 mg Tablet 500 mg PO HS RF: 0 propranolol 60 mg capsule,extended release 24 hr 60 mg PO HS RF: 0 Discharge Orders: Discharge Order (Routine); Ordered 10/22/19 Ordered By: Dario Coley Admission Data Admit Date/Time: 10/21/19 22:09 Attending Provider: Sarah Kaminski Admit Provider: Jose Massey Primary Care Provider: Bruno Pritchard Other Providers: Roddy Felton Other Interventions: Discharge Summary Assessment (RN) Last Done: 10/22/19 17:17 DC Date/Time DO NOT enter until pt leaves facility: 10/22/19 19:08 Supervising Physician Co-Signing Physician Notes Resident Physician Supervision Note: I independently interviewed and examined the patient and verified the espana history and physical, reviewed labs and image studies, discussed the case with the resident Dr. Coley and agree with the findings and care plan. Time spent in discharge 35 min Resident Activity Tracking Resident Involvement: Resident Care Provided Care Provided: Adult Hospital Medicine
[2019-10-22] MEDS: HEPARIN SODIUM/DEXTROSE 25,000 UNITS/500 ML BAG IV SCH (14:30)
[2019-10-22] MEDS ORDERED: RIVAROXABAN 15 MG TAB PO SCH ×2 (19:00→21:00)
[2019-10-22] MEDS ORDERED: STOP HEPARIN ORDER ONE (19:00)
[2019-10-22] MEDS ORDERED: [UNRECOGNIZED DRUG - OTHER] PO SCH (21:00)
[2019-10-22] MEDS ORDERED: PROPRANOLOL HCL 60 MG LA CAP PO SCH (21:00)
[2019-10-22] MEDS ORDERED: NON-FORMULARY MEDICATION (Lysine [L-Lysine] 500 MG) PO SCH (21:00)
== END 2019-10-22 19:08 | disposition home or self-care (01) | DRG 176 ==
LOC: ED 17:53 → SUATTDRO 22:09 → 2S 22:09